=== PATIENT | male | born 1980 | race Caucasian/White ===

== ENCOUNTER 2016-12-27 22:25 | Emergency (ER) | payer SELFPAY ==
[2016-12-27 22:33] VITALS: BP 164/94; PULSE 77; RESP 16; TEMP 97.8
[2016-12-27] MEDS ORDERED: TOBRAMYCIN 0.3% OPHTH DROPS 5 ML BTL RIGHT EYE STA (23:28)
--- NOTE | 2016-12-27 23:31 | ED ---
Eye Problem HPI - General Chief complaint: Eye Problems Stated complaint: Eye Problem Time Seen by Provider: 12/27/16 22:44 Source: patient Mode of arrival: ambulatory Limitations: no limitations - History of Present Illness Initial comments: Patient is a 36-year-old male with chief complaint of feeling that there is something in his right eye. reports that his eyes continuing to swell and drained constantly. Patient reports that he initially that this occurred on 07/2017. 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 Patient denies any decreased vision. He states that he does wear contacts regularly. He reports he has not worn contacts over the past few days. He states that he does not wear glasses as they're not the correct prescription for him. - Related Data Previous Rx's Medication Instructions Recorded Tobramycin 0.3% Ophth Soln [Tobrex 1 - 2 drop BOTH EYES Q4H #1 bottle 12/27/16 0.3% Ophth Soln] Allergies Allergy/AdvReac Type Severity Reaction Status Date / Time Penicillins Allergy Nausea & Verified 12/27/16 22:33 Vomiting Review of Systems ROS Statement: Those systems with pertinent positive or pertinent negative responses have been documented in the HPI. ROS Other: All systems not noted in ROS Statement are negative. Past Medical History Additional Past Medical History / Comment(s): Hep C History of Any Multi-Drug Resistant Organisms: None Reported Past Surgical History: No Surgical Hx Reported Past Psychological History: Anxiety, Bipolar, Depression Smoking Status: Current every day smoker Past Alcohol Use History: Rare Past Drug Use History: None Reported General Exam - General Exam Comments Initial Comments: Well-appearing 36-year-old male. No acute distress. Limitations: no limitations General appearance: alert, in no apparent distress Head exam: Present: atraumatic, normocephalic, normal inspection Eye exam: Present: normal appearance, PERRL, EOMI, conjunctival injection ( Right eye conjunctival injection. Evidence of foreign body at the 12 o'clock position and the pupil.), periorbital swelling (Right eye swelling.), other. Absent: scleral icterus, periorbital tenderness ENT exam: Present: normal exam, mucous membranes moist, TM's normal bilaterally Neck exam: Present: normal inspection. Absent: tenderness, meningismus, lymphadenopathy Respiratory exam: Present: normal lung sounds bilaterally. Absent: respiratory distress, wheezes, rales, rhonchi, stridor Cardiovascular Exam: Present: regular rate, normal rhythm, normal heart sounds. Absent: systolic murmur, diastolic murmur, rubs, gallop, clicks GI/Abdominal exam: Present: soft, normal bowel sounds. Absent: distended, tenderness, guarding, rebound, rigid Extremities exam: Present: normal inspection, full ROM, normal capillary refill. Absent: tenderness, pedal edema, joint swelling, calf tenderness Back exam: Present: normal inspection Neurological exam: Present: alert, oriented X3, CN II-XII intact Psychiatric exam: Present: normal affect, normal mood Skin exam: Present: warm, dry, intact, normal color. Absent: rash Course Vital Signs 12/27/16 22:29 Temperature 97.8 F Pulse Rate 77 Respiratory 16 Rate Blood Pressure 164/94 O2 Sat by Pulse 98 Oximetry Medical Decision Making - Medical Decision Making Patient is a 36-year-old male chief complaint of right thigh pain and swelling for approximately 2 days. Patient reports he initially thought he had something in his eye on . Patient states that it seemed to get better after that time. He states over the past 2 days the swelling has returned now feels like there might. Patient states that he used a new of his previous antibiotic drops however it did not help. Patient states it bynum when he put in. Patient states that he wears contacts but has not worn them in the past few days. 4 seen on exam was performed and there is evidence of foreign body to 12 o'clock position. The foreign body was removed with the [place] brush. Patient tolerated the procedure well. I was reexamined and no evidence of foreign body at this time. Patient will be started on tobramycin drops. given an incidental emergency department a prescription to go home. Patient also advised follow-up with forensic artist if symptoms continue to persist after 2-3 days. Patient attempted treatment plan will comply. Return parameters were discussed. Disposition Clinical Impression: Corneal foreign body Disposition: HOME SELF-CARE Condition: Good Additional Instructions: Patient is not aware contacts until eyes totally healed. No contacts for 1 week minimum. Patient advised to apply that eye drop every 4 hours in the eye. Follow-up with ophthalmology if symptoms continue to persist. Prescriptions: Tobramycin 0.3% Ophth Soln [Tobrex 0.3% Ophth Soln] 1 - 2 drop BOTH EYES Q4H #1 bottle Referrals: Kenya Klein MD [REFERRING] - 1-2 days Venu Suresh MD [STAFF PHYSICIAN] - 1-2 days Time of Disposition: 23:29
== END 2016-12-27 23:30 | disposition home or self-care (01) ==
LOC: EC 22:25
DX: S05.02XA Injury of conjunctiva and corneal abrasion without foreign body, left eye, initial encounter (principal); X58.XXXA Exposure to other specified factors, initial encounter; F17.200 Nicotine dependence, unspecified, uncomplicated
CPT/HCPCS: 99283

== ENCOUNTER 2018-03-14 14:52 | Emergency (ER) | payer OTHER ==
[2018-03-14 14:58] VITALS: BP 151/84; PULSE 87; RESP 16; TEMP 98
--- NOTE | 2018-03-14 15:38 | ED ---
General Adult HPI - General Chief complaint: Extremity Injury, Upper Stated complaint: shoulder pain-[facility] Time Seen by Provider: 03/14/18 15:01 Source: patient, RN notes reviewed Mode of arrival: ambulatory Limitations: no limitations - History of Present Illness Initial comments: 37-year-old male presents to the emergency department for a chief complaint of left shoulder pain times one day. Patient states he was at work when he went to lift a heavy large can and injured his left shoulder. Patient denies any shooting pain down the left shoulder. Patient denies any numbness or tingling in the left arm. Patient denies falling or hitting his head or sustaining any other injuries. Patient states "he knows it is not broken." Patient states he does not want anything for pain and refuses Motrin. Patient has no other complaints at this time including shortness of breath, chest pain, abdominal pain, nausea or vomiting, headache, or visual changes. - Related Data Home Medications Medication Instructions Recorded Confirmed diphenhydrAMINE HCL [Benadryl] 25 mg PO HS PRN 03/14/18 03/14/18 Allergies Allergy/AdvReac Type Severity Reaction Status Date / Time Penicillins Allergy Unknown Verified 03/14/18 15:13 Childhood Review of Systems ROS Statement: Those systems with pertinent positive or pertinent negative responses have been documented in the HPI. ROS Other: All systems not noted in ROS Statement are negative. Past Medical History Additional Past Medical History / Comment(s): Hep C History of Any Multi-Drug Resistant Organisms: None Reported Past Surgical History: No Surgical Hx Reported Past Psychological History: Anxiety, Bipolar, Depression Smoking Status: Current every day smoker Past Alcohol Use History: Rare Past Drug Use History: Marijuana General Exam Limitations: no limitations General appearance: alert, in no apparent distress Neck exam: Present: normal inspection, full ROM. Absent: tenderness, meningismus, lymphadenopathy Respiratory exam: Present: normal lung sounds bilaterally. Absent: respiratory distress, wheezes, rales, rhonchi, stridor Cardiovascular Exam: Present: regular rate, normal rhythm, normal heart sounds. Absent: systolic murmur, diastolic murmur, rubs, gallop, clicks Extremities exam: Present: tenderness (Tenderness to the left shoulder on the anterior and lateral aspect. No tenderness along the clavicle humerus or back. No tenderness along the wrist or scaphoid.), normal capillary refill (Refill less than 2 seconds and radial pulse 2+.), other (Sensation intact in the left upper extremity. I was not able to perform physical exam tests such as empty can or Baum due to patient's pain.). Absent: full ROM (Patient has about 30 of flexion and abduction of the left shoulder. Full range of motion of the left elbow and wrist and digits.), joint swelling (No swelling or ecchymosis noted in the left shoulder.) Back exam: Present: normal inspection, full ROM. Absent: tenderness Course Vital Signs 03/14/18 14:55 Temperature 98.0 F Pulse Rate 87 Respiratory 16 Rate Blood Pressure 151/84 O2 Sat by Pulse 97 Oximetry Medical Decision Making - Medical Decision Making 37-year-old male presents to the emergency department for a chief complaint of left shoulder pain times one day. Patient was picking up a can at work when he injured his left shoulder. Patient denies any other acute injuries. Patient did not sustain any other injuries or fall or hit his head. Patient denies any chest pain or shortness of breath. On exam patient has limited flexion and abduction of the shoulder to 30. Sensation and neurovascular intact. Patient does not want anything for pain. X-ray done and states no acute fractures or dislocations. Patient was educated that while this rules out any fractures or complete separations there are still possibilities of rotator cuff injuries and ligamentous injuries. He will need to follow up with orthopedics in case they would like to do additional testing. Patient was given a sling in the emergency department. He was educated to do range of motion exercises with it every couple hours. He was told to take Motrin and Tylenol for pain. I offered patient a perception for Motrin as well as Motrin in the emergency department which he declined. Patient will follow-up with orthopedics. 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 He will call to make an appointment today. He will return to the emergency department if he has any worsening symptoms. Disposition Clinical Impression: Shoulder injury Disposition: HOME SELF-CARE Condition: Good Instructions: Shoulder Pain (ED) Additional Instructions: Please use sling as comfortable. Please remember to do range of motion exercises with the sling. Take Motrin or Tylenol for pain. Follow-up with orthopedics in one to 2 days. Return to the emergency department if symptoms worsen. Is patient prescribed a controlled substance at d/c from ED?: No Referrals: Jose Colin MD [Medical Doctor] - 1-2 days Osmel Rainey MD [STAFF PHYSICIAN] - 1-2 days Time of Disposition: 16:27
--- NOTE | 2018-03-14 16:04 | XR ---
Left shoulder HISTORY: Left shoulder pain 3 views of the left shoulder Bone mineralization, joint spaces and alignment are maintained. IMPRESSION: No fracture or dislocation.
== END 2018-03-14 16:30 | disposition home or self-care (01) ==
LOC: EC 14:52
DX: S49.92XA Unspecified injury of left shoulder and upper arm, initial encounter (principal); F17.200 Nicotine dependence, unspecified, uncomplicated; Z88.0 Allergy status to penicillin; X50.0XXA Overexertion from strenuous movement or load, initial encounter; Y93.89 Activity, other specified; Y92.69 Other specified industrial and construction area as the place of occurrence of the external cause; Y99.0 Civilian activity done for income or pay
CPT/HCPCS: 99283